=== PATIENT | female | born 1965 | race Two or more races ===

== ENCOUNTER 2023-07-29 05:18 | Inpatient (IN) | payer OTHER ==
[~2023-07-29] VITALS: Ht 160 cm; Wt 105.7 kg
[2023-07-29 06:48] VITALS: BP 109/74; TEMP 98.3; O2SAT 96
[2023-07-29] MEDS ORDERED: ANESTHESIA TRAY IN PYXIS 1 EA TRAY MC ONE (06:48)
[2023-07-29] MEDS ORDERED: POLYMYXIN B SULFATE 500,000 UNITS ONE (06:48)
[2023-07-29] MEDS ORDERED: BUPIVACAINE 0.5 % PF 150 MG/30 ML VIAL ONE ×2 (06:49→08:07)
[2023-07-29] MEDS ORDERED: TRANEXAMIC ACID 3,000 MG in SODIUM CHLORIDE IRRIG SOLUTION 70 ML IR ONE (07:00)
[2023-07-29] MEDS ORDERED: FENTANYL PF 250MCG/5ML AMPUL ONE (07:18)
[2023-07-29] MEDS ORDERED: SEVOFLURANE 250 ML BOTTLE IH ONE (07:31)
[2023-07-29] MEDS ORDERED: MENTHOL/CETYLPYRD (CEPACOL) 1 LOZ LOZENGE PO PRN (08:00)
[2023-07-29] MEDS ORDERED: oxyCODONE IR immediate release 5 MG PO PRN (08:00)
[2023-07-29] MEDS ORDERED: CLONIDINE HCL 0.1 MG TABLET PO PRN (08:00)
[2023-07-29] MEDS ORDERED: diphenhydrAMINE HCL 25 MG CAPSULE PO PRN (08:00)
[2023-07-29] MEDS ORDERED: MAG HYDROX/AL HYDROX/SIMETH 30 ML UDC PO PRN (08:00)
[2023-07-29] MEDS ORDERED: HYDROMORPHONE 1 MG/1 ML DISP.SYRIN IV PRN (08:00)
[2023-07-29] MEDS ORDERED: BISACODYL SUPP (10 MG) 10 MG/SUPP.RECT SUPP.RECT RC PRN ×2 (08:00→10:00)
[2023-07-29] MEDS ORDERED: MAGNESIUM HYDROXIDE 30 ML UDC PO PRN (08:00)
[2023-07-29] MEDS ORDERED: ONDANSETRON HCL/PF 4 MG/2 ML VIAL IV PRN (08:30)
[2023-07-29] MEDS ORDERED: NALOXONE HCL 0.4 MG/ML AMPUL IV PRN (08:30)
[2023-07-29] MEDS ORDERED: HYDROMORPHONE 1 MG/1 ML DISP.SYRIN ONE (08:39)
[2023-07-29] MEDS ORDERED: TOPI100T PO (09:54)
[2023-07-29] MEDS ORDERED: FLUO20CA42 PO (09:54)
[2023-07-29] MEDS ORDERED: METO25TA4 PO (09:54)
[2023-07-29] MEDS ORDERED: LOSA100T31 PO (09:54)
[2023-07-29] MEDS ORDERED: ERGO500040 PO (09:54)
[2023-07-29] MEDS ORDERED: ATOR10TA PO (09:54)
[2023-07-29] MEDS: DOCUSATE SODIUM 100 MG CAPSULE PO SCH ×2 (09:56→16:17)
[2023-07-29] MEDS: FAMOTIDINE (20 MG) 20 MG TABLET PO SCH ×2 (09:56→16:16)
[2023-07-29] MEDS: oxyCODONE IR immediate release 5 MG PO PRN ×3 (09:58→22:39)
[2023-07-29] MEDS ORDERED: ONDANSETRON HCL/PF 4 MG/2 ML VIAL IVP PRN (10:00)
[2023-07-29] MEDS ORDERED: ACETAMINOPHEN 325 MG TABLET PO PRN (10:00)
[2023-07-29] MEDS ORDERED: SENNOSIDES 8.6 MG TABLET PO PRN (10:00)
[2023-07-29] MEDS ORDERED: ZOLPIDEM TARTRATE 5 MG TABLET PO PRN (10:00)
[2023-07-29] MEDS ORDERED: IV LR 1000 ML 1,000 ML IV PRN (10:00)
[2023-07-29] MEDS ORDERED: DOCUSATE SODIUM 250 MG CAPSULE PO PRN (10:00)
[2023-07-29] MEDS ORDERED: HYDROMORPHONE 1 MG/1 ML DISP.SYRIN IM/IV/SC PRN (10:00)
[2023-07-29 10:30] VITALS: BP 96/58; TEMP 97.3; O2SAT 94
[2023-07-29] MEDS: HYDROMORPHONE 1 MG/1 ML DISP.SYRIN IM/IV/SC PRN ×2 (11:35→14:49)
[2023-07-29] MEDS ORDERED: ERGOCALCIFEROL (VITAMIN D 2) 50,000 UNIT CAPSULE PO SCH (13:00)
[2023-07-29] MEDS ORDERED: TEMAZEPAM 15 MG CAPSULE PO PRN (13:00)
[2023-07-29] MEDS: METOPROLOL SUCCINATE 25 MG TAB.SR.24H PO SCH ×2 (13:00→13:11)
[2023-07-29] MEDS: LOSARTAN POTASSIUM 50 MG TABLET PO SCH ×2 (13:00→13:11)
[2023-07-29] MEDS: ATORVASTATIN 10 MG TABLET PO SCH (13:12)
[2023-07-29] MEDS: FLUOXETINE HCL 20 MG CAPSULE PO SCH (13:16)
[2023-07-29] MEDS: ANCEF 1 GM/50 ML D5W IV SCH ×4 (14:23→23:12)
[2023-07-29 16:00] VITALS: BP 128/80; TEMP 98.1; O2SAT 97
[2023-07-29] MEDS: TOPIRAMATE 100 MG TABLET PO SCH (16:16)
[2023-07-29] MEDS: CARISOPRODOL 350 MG TABLET PO PRN (19:37)
[2023-07-29] MEDS: HYDROMORPHONE 1 MG/1 ML DISP.SYRIN SQ PRN (21:07)
[2023-07-30] MEDS: HYDROMORPHONE 1 MG/1 ML DISP.SYRIN SQ PRN ×2 (05:36→11:54)
[2023-07-30] MEDS ORDERED: oxyCODONE IR immediate release 5 MG PO ONE (05:38)
[2023-07-30 06:48] LABS: BASOPHILS % (AUTO) 0.3 % (0.0-2.0); EOSINOPHILS # (AUTO) 0.4 K/uL (0.0-0.7); EOSINOPHILS % (AUTO) 3.5 % (0.0-6.0); HEMATOCRIT 32 % (33-45); HEMOGLOBIN 10.4 g/dL (11.5-14.8); LYMPHOCYTES # (AUTO) 1.7 K/uL (0.8-4.8); LYMPHOCYTES % (AUTO) 15.7 % (20.0-44.0); MEAN CORPUSCULAR HEMOGLOBIN 30 PG (26.0-33.0); MEAN CORPUSCULAR HGB CONC 33 g/dl (31.0-36.0); MEAN CORPUSCULAR VOLUME 91 fL (82-100); MONOCYTES # (AUTO) 1.1 K/uL (0.1-1.30); MONOCYTES % (AUTO) 10.5 % (2.0-12.0); NEUTROPHILS # (AUTO) 7.4 K/uL (1.8-8.9); PLATELET COUNT (AUTO) 168 K/uL (150-450); RED BLOOD CELL COUNT(AUTO) 3.47 MIL/uL (4.0-5.2); RED CELL DISTRIBUTION WIDTH 13.4 % (11.5-15.0); WHITE BLOOD COUNT (AUTO) 10.5 K/uL (4.3-11.0)
[2023-07-30 07:17] LABS: ALBUMIN 3.1 g/dL (3.4-5.0); BILIRUBIN,TOTAL 0.3 mg/dL (0.2-1.0); CALCIUM, SERUM 8.5 mg/dL (8.5-10.1); TOTAL PROTEIN, SERUM 6.6 g/dL (6.4-8.2)
[2023-07-30 07:30] VITALS: BP 124/72; TEMP 99.5; O2SAT 90
[2023-07-30] MEDS: DOCUSATE SODIUM 100 MG CAPSULE PO SCH (08:16)
[2023-07-30] MEDS: ATORVASTATIN 10 MG TABLET PO SCH (08:17)
[2023-07-30] MEDS: FLUOXETINE HCL 20 MG CAPSULE PO SCH (08:17)
[2023-07-30] MEDS: TOPIRAMATE 100 MG TABLET PO SCH (08:17)
[2023-07-30] MEDS: FAMOTIDINE (20 MG) 20 MG TABLET PO SCH (08:17)
[2023-07-30] MEDS: LOSARTAN POTASSIUM 50 MG TABLET PO SCH (08:17)
[2023-07-30 08:18] VITALS: BP 124/72
[2023-07-30] MEDS: CARISOPRODOL 350 MG TABLET PO PRN (08:18)
[2023-07-30] MEDS: METOPROLOL SUCCINATE 25 MG TAB.SR.24H PO SCH (08:18)
[2023-07-30] MEDS ORDERED: CARI350T PO (08:19)
[2023-07-30] MEDS ORDERED: oxyCODONE IR immediate release 5 MG PO PRN (08:30)
[2023-07-30] MEDS ORDERED: ASPIRIN 325 MG TABLET PO SCH (09:00)
[2023-07-30] MEDS: HYDROMORPHONE 1 MG/1 ML DISP.SYRIN IM/IV/SC PRN (09:58)
== END 2023-07-30 12:00 | disposition home or self-care (01) | DRG 470 ==
LOC: DS 05:18 → MED 05:20
PROVIDERS: ADMIT Nurse Practitioner Acute Care; ATTEND Nurse Practitioner Acute Care
PROC: 0SRC0J9 Replacement of Right Knee Joint with Synthetic Substitute, Cemented, Open Approach (ICD-10-PCS; principal; 2023-07-29)
DX: M17.11 Unilateral primary osteoarthritis, right knee (principal); Z68.41 Body mass index [BMI] 40.0-44.9, adult; E44.0 Moderate protein-calorie malnutrition; E66.01 Morbid (severe) obesity due to excess calories; F32.A Depression, unspecified; F41.9 Anxiety disorder, unspecified; I10 Essential (primary) hypertension; E78.5 Hyperlipidemia, unspecified; Z90.710 Acquired absence of both cervix and uterus; Z96.652 Presence of left artificial knee joint; Z79.891 Long term (current) use of opiate analgesic
CPT/HCPCS: 36415; 80053-TC; 80061-TC; 82962-TC; 85025-TC; 86850-TC; 87081-TC; 88305-TC; 88311-TC; 97116-TC; 97530-TC; A4217; A4223; A6209; A6253; C1713; C1776; G0378; J0690; J1170; J2704; J3010; J3490; J7030; J7040; J7060; J7120